=== PATIENT | female | born 1950 | race Two or more races ===

== ENCOUNTER 2024-03-09 10:30 | Outpatient (CLI) | payer MEDICARE, MEDICAID ==
--- NOTE | 2024-03-09 15:51 | XRAY Report ---
PROCEDURE: Knee 3V LT INDICATIONS: KNEE PAIN, LEFT TECHNIQUE: 3 views of the knee was obtained. COMPARISON: None FINDINGS: Bones: No fractures or dislocations. No suspicious bony lesions. Mild medial compartmental joint sp preet narrowing Soft tissues: Small knee joint effusion. No suspicious soft tissue calcifications or masses. IMPRESSION: Mild medial compartment joint space narrowing and small joint effusion Reviewed by: Jose Mercedes MD on 03/09/2024 2:50 PM AKDT Approved by: Jose Mercedes MD on 03/09/2024 2:50 PM AKDT Station ID: [id number]
== END 2024-03-09 10:45 | disposition home or self-care (01) ==
LOC: DI.N 10:30
PROVIDERS: ATTEND Physician Assistant
DX: M25.862 Other specified joint disorders, left knee (principal); M25.462 Effusion, left knee